=== PATIENT | female | born 1945 | race Caucasian/White ===

== ENCOUNTER 2016-10-11 19:58 | Emergency (ER) | payer MEDICARE ==
--- NOTE | 2016-10-16 01:31 | ER ---
ADMIT: 10/11/2016 RM/LOC: ER [facility] MR#: [id number] [id number] YARELI HUITRON [address] [place] [address] Emergency Room Report SEX: F AGE: 71 : 1945 DATE: 10/11/2016 BRIEF ADDENDUM: Please see my T-sheet for complete review of systems, past medical history, and physical exam. CHIEF COMPLAINT: Left arm numbness. HISTORY OF PRESENT ILLNESS: A pleasant 71-year-old, female, who presents to the ER with her family members, complains of left arm numbness and headache. States this happened at approximately 1930 hours this evening. Prior to this, she was feeling well today. Denies any weakness, visual impairments, problems with speech, swallowing, or decreased ability to walk. She is typically alert and oriented x4, walks without assistance. Denies any fever, chills, neck pain, back pain, or altered mental status. Does state she had some dizziness earlier, however, feels this is fine now. Does have a past medical history for atrial fibrillation, chronically on anticoagulation with Xarelto as well as hypertension, hyperlipidemia, and GERD. She is status post pacemaker for her atrial fibrillation. COURSE IN THE ER: GENERAL: The patient is seen and examined. She is afebrile and nontoxic. She is in no acute distress. HEENT: Pupils were equal and reactive. Extraocular movements are intact. Pharynx is normal. Nonerythematous. NEURO: She is alert and oriented x4. Cognition is intact. She follows commands appropriately. She has normal speech. Cranial nerves are normal as tested. EXTREMITIES: She is able to ambulate in the department. She has normal finger-nose testing. Motor and sensation are intact in the upper and lower extremities compared bilaterally. NECK: Soft and supple. RESPIRATORY: No distress. No wheezes, rhonchi, or rales. HEART: Regular rate. ABDOMEN: Soft and nontender. SKIN: Warm and dry. ADMIT: 10/11/2016 RM/LOC: [facility] MR#: [id number] [id number] YARELI HUITRON [address] [place] [address] Emergency Room Report SEX: F AGE: 71 : 1945 LABORATORY STUDIES: We did get laboratory studies on her today. White count 7.3, hemoglobin 12.9, hematocrit 39.9, platelets 185. Sodium 143, potassium 4.3, BUN 16, glucose 112, creatinine 0.8. UA was normal. Did get a head CT on her today, no acute bleed or ischemia. IMPRESSION: Left arm paresthesia, resolved. DISPOSITION: The patient was encouraged to follow up with Dr. Swanson this week. Continue all of her home medications. Tylenol as needed for pain. Questions sought and answered to the best of my ability and to the patient's satisfaction. Discharged in stable condition. ESTEPHANIA Mora / Vincent Messer MD / mariel JOB #: [id number] CC: Vincent Messer MD, Attending Physician Delon Swanson MD, Family Physician
== END 2016-10-11 22:15 | disposition home or self-care (01) ==
LOC: ER 19:58
DX: R20.9 Unspecified disturbances of skin sensation (principal); H10.9 Unspecified conjunctivitis; I10 Essential (primary) hypertension; E78.5 Hyperlipidemia, unspecified; Z95.0 Presence of cardiac pacemaker; Z79.899 Other long term (current) drug therapy